=== PATIENT | female | born 1940 | race Caucasian/White ===

== ENCOUNTER 2018-06-24 11:32 | Emergency (ER) | payer OTHER ==
[2018-06-24] MEDS ORDERED: BACITRACIN 0.9 GM PACKET TP ONE (12:18)
[2018-06-24 12:19] VITALS: BP 163/64; PULSE 97; TEMP 98.7; BMI 19.1
[2018-06-24] MEDS ORDERED: ERYTHROMYCIN 0.5% OPHTHALMIC OINTMENT 3.5 GM TUBE OS ONE (12:19)
[2018-06-24] MEDS ORDERED: ERYTHROMYCIN 0.5% OPHTHALMIC OINTMENT 3.5 GM TUBE ONE (12:21)
--- NOTE | 2018-06-24 12:23 | PDOC ---
History of Present Illness - General Chief Complaint: Wound Stated Complaint: Wound Time Seen by Provider: 06/24/18 11:52 History Source: Patient, [facility] Exam Limitations: Dementia - History of Present Illness Initial Comments: 06/24/18 12:17 Patient is a 77F with history of dementia, RA here today for a laceration to her left upper arm. Patient reports not knowing when the laceration happened. [facility], states that she has had the wound for two weeks. Dr Jose Alberto munoz, unsure of when the wound happened but states that it does not appear two weeks old. Patient is alert and oriented to self only. Denies fevers, chills, pain. No other acute issues per [facility] staff and md. Past History - Past Medical History Allergies/Adverse Reactions: Allergies Allergy/AdvReac Type Severity Reaction Status Date / Time No Known Allergies Allergy Verified 06/24/18 11:49 Anemia: Yes CVA: No COPD: No Dementia: Yes (alzheimers) HTN: Yes Hypercholesterolemia: Yes Thyroid Disease: Yes (hypothyroid) Other medical history: rheumatoid arthritis - Immunization History Immunization Up to Date: Yes - Suicide/Smoking/Psychosocial Hx Smoking History: Never smoked Have you smoked in the past 12 months: No Information on smoking cessation initiated: No Hx Alcohol Use: No Drug/Substance Use Hx: No Review of Systems - Review of Systems Able to Perform ROS?: No (2/2 dementia) *Physical Exam - Vital Signs Last Vital Signs Temp Pulse Resp BP Pulse Ox 98.7 F 97 H 17 163/64 97 06/24/18 11:50 06/24/18 11:50 06/24/18 11:50 06/24/18 11:50 06/24/18 11:50 - Physical Exam Comments: 06/24/18 12:20 GENERAL: Awake, alert, and fully oriented, in no acute distress HEAD: No signs of trauma, normocephalic, atraumatic EYES: PERRLA, EOMI, sclera anicteric, L eye discharge ENT: Auricles normal inspection, hearing grossly normal, nares patent, oropharynx clear without exudates. Moist mucosa NECK: Normal ROM, supple, no lymphadenopathy, JVD, or masses LUNGS: No distress, speaks full sentences, clear to auscultation bilaterally HEART: Regular rate and rhythm, normal S1 and S2, no murmurs, rubs or gallops, peripheral pulses normal and equal bilaterally. ABDOMEN: Soft, nontender, normoactive bowel sounds. No guarding, no rebound. No masses EXTREMITIES: Normal inspection, Normal range of motion, no edema. No clubbing or cyanosis. NEUROLOGICAL: Cranial nerves II through XII grossly intact. Normal speech, no focal sensorimotor deficits SKIN: Warm, Dry, normal turgor, no rashes or lesions noted. Moderate Sedation - Procedure Monitoring Vital Signs: Procedure Monitoring Vital Signs Temperature 98.7 F 06/24/18 11:50 Pulse Rate 97 H 06/24/18 11:50 Respiratory Rate 17 06/24/18 11:50 Blood Pressure 163/64 06/24/18 11:50 O2 Sat by Pulse Oximetry (%) 97 06/24/18 11:50 Procedures - Laceration/Wound Repair Left Lateral Arm Wound Length: 5.0 to 7.5 cm Wound Explored: clean, no foreign body present Wound's Depth, Shape: superficial Irrigated w/ Saline: Yes Wound Repaired With: Steri-strips Sterile Dressing Applied: Yes Progress: 06/24/18 12:24 Bacitracin applied. Medical Decision Making - Medical Decision Making 06/24/18 12:21 Patient is 77F with history of dementia and RA here today with conjunctivitis and laceration. Unknown time for wound, will not suture at this time. Will steristrip and use bacitracin. Will use erythromycin for conjuncitivitis. *DC/Admit/Observation/Transfer Diagnosis at time of Disposition: Laceration of left upper extremity, Conjunctivitis - Referrals Referrals: Marquez Abrams MD [Primary Care Provider] - - Patient Instructions Additional Instructions: Please use erythromycin eye ointment on the left eye 4 times per day for the next week. - Post Discharge Activity
--- NOTE | 2018-06-24 12:39 | PDOC ---
Attending Attestation - Resident Resident Name: PhillipAngel francis - ED Attending Attestation I have performed the following: I have examined & evaluated the patient, The case was reviewed & discussed with the resident, I agree w/resident's findings & plan, Exceptions are as noted - HPI HPI: 06/24/18 12:39 The patient is a 77-year-old female from [facility], with a past medical history of anemia, HTN, GERD, RA, dementia, sent to the ED by Dr. Abrams for evaluation of LT upper arm wound. It is unknown how old the wound is. HPI is limited due to patients dementia. Per [facility] staff, it is unclear how old the wound is, though they estimate likely several days old. - Physicial Exam PE: 06/24/18 12:39 "GENERAL: Awake, alert, and fully oriented, in no acute distress. HEAD: No signs of trauma EYES: PERRLA, EOMI, sclera anicteric, conjunctiva clear ENT: Auricles normal inspection, hearing grossly normal, nares patent, oropharynx clear without exudates. Moist mucosa NECK: Nontender, no stepoffs, Normal ROM, supple, no lymphadenopathy, JVD, or masses LUNGS: Breath sounds equal, clear to auscultation bilaterally. No wheezes, and no crackles HEART: Regular rate and rhythm, normal S1 and S2, no murmurs, rubs or gallops ABDOMEN: Soft, nontender, normoactive bowel sounds. No guarding, no rebound. No masses EXTREMITIES: Normal range of motion, no edema. No clubbing or cyanosis. No cords, erythema, or tenderness NEUROLOGICAL: Cranial nerves II through XII intact. 5/5 strength and sensation in all extremities, Normal speech, normal gait, normal cerebellar function SKIN: + 2cm skin tear to L upper arm, no erythema or induration, no fluctuance, no drainage - Medical Decision Making 06/24/18 12:40 77 F with skin tear to L upper arm of unclear age. Will dress with steristrips and abx ointment. Pt is well appearing, with normal vitals. Clinically stable for DC at this time. I discussed the physical exam findings, ancillary test results and final diagnoses with the patient. I answered all of the patient's questions. The patient was satisfied with the care received and felt comfortable with the discharge plan and treatment plan. The patient agrees to follow up with the primary care physician within 24-72 hours.
== END 2018-06-24 14:29 ==
LOC: JER 11:32
PROC: 0HQBXZZ Repair Right Upper Arm Skin, External Approach (ICD-10-PCS; principal; 2018-06-24)
DX: S41.111A Laceration without foreign body of right upper arm, initial encounter (principal); F03.90 Unspecified dementia, unspecified severity, without behavioral disturbance, psychotic disturbance, mood disturbance, and anxiety; M06.80 Other specified rheumatoid arthritis, unspecified site; G30.8 Other Alzheimer's disease; F02.80 Dementia in other diseases classified elsewhere, unspecified severity, without behavioral disturbance, psychotic disturbance, mood disturbance, and anxiety; I10 Essential (primary) hypertension; E78.00 Pure hypercholesterolemia, unspecified; E03.9 Hypothyroidism, unspecified
CPT/HCPCS: 12002; 99282-25